=== PATIENT | female | born 1955 | race Caucasian/White ===

== ENCOUNTER → 2016-11-03 | Outpatient (CLI) | payer OTHER ==
[~2016-11-03] MED LIST: AMLODIPINE10 MG; AMLODIPINE10 MG PO; BENAZEPRIL HYDR40 MG PO; COQ10150 MG PO; DYAZIDE CAP (M1 EACH PO; GLYBURIDE 5MG TA5 MG PO; KLOR-CON M2020 MEQ PO; LUTEIN6 M1 PO; METFORMIN 500M500 MG PO; METOPROLOL50 MG PO; NEXIUM40 MG PO; OMEGA-31000 MG PO; PHARMASSURE RE250 MG PO; SYNTHROID 0.0.075 MG PO; VICTOZA6 MG/ML SC
== END ==
LOC: LAB 16:23
DX: L02.221 Furuncle of abdominal wall (principal)

== ENCOUNTER 2017-02-19 08:39 | Day surgery (SDC) | payer OTHER ==
[~2017-02-19] VITALS: Ht 170.2 cm; Wt 117.9 kg
--- NOTE | 2017-02-19 09:55 | Operative Note ---
Upper GI Endoscopy Procedure date: 02/19/17 Date of : 51 Procedure:Upper GI Endoscopy Esophagogastroduodenoscopy with cold biopsies Indications: Mrs. 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 This was identified by her EGD in August 2016. Her insurance would not approve radiofrequency ablation so she is here for follow-up surveillance endoscopy at 6 months. Her dysphagia and globus sensation improved with esophageal dilation and the addition of domperidone. She is on PPI therapy as well. The patient has no symptoms of heartburn, reflux or dysphagia. Performing Provider: Jose Yanes MD Referring Provider: Arnoldo Valverde M.D. Sedation: MAC anesthesia Procedure: Prior to the procedure, a history and physical exam was performed, and patients medications and allergies were reviewed. The risks and benefits of the procedure and the sedation options and risks were discussed with the patient. All questions were answered and informed consent was obtained. The patient was brought to the procedure room. Patient identification and proposed procedure were verified by the physician and the nurse. The patient was placed in a left lateral decubitus position and the scope was passed under direct vision. Throughout the procedure, the patient's blood pressure, pulse, and oxygen saturations were monitored continuously. The endoscope was introduced through the mouth, and advanced to the second part of duodenum. The upper GI endoscopy was accomplished without difficulty. The patient tolerated the procedure well. Findings: The scope was passed directly into the upper esophagus and advanced to the third portion of the duodenum. The post bulbar duodenum and duodenal bulb were normal with normal mucosa and conniventes. The scope was withdrawn through a normal duodenal bulb and pylorus into the stomach. There was some reactive gastritis of the stomach with bile reflux. There was no hiatal hernia. The scope was then withdrawn into the esophagus. There was a very short segment Henry's esophagus with 1 or 2 tongues of Henry's. Narrowband imaging was utilized and the area of probable Henry's with low-grade dysplasia was identified and biopsied 4. There was no evidence of reflux esophagitis or Schatzki's ring. The remainder of the esophageal mucosa was normal. Immediate complications: None EBL (ml): 0 Impression: 1. Short segment Henry's esophagus with nonerosive gastroesophageal reflux disease 2. Bile reflux with mild linear reactive gastritis Recommendations: I will follow-up the biopsies. If she has evidence of low-grade dysplasia, I would still encourage and recommend radiofrequency ablation. I do feel that she will have coverage when she is eligible for Medicare. I will discuss this with the patient and family. at 0972
--- NOTE | 2017-02-19 10:02 | Anesthesia Record ---
Anesthesia Record Part I Total IV fluids: 200 EBL (ml): 0 Urine Output: 0 B/P: 130/71 % SaO2: 94 Pulse: 67 Resps: 16 Temp: 97.9 Patient is: Awake, Stable Stable to PACU at: 0954 (sds) at 1001
--- NOTE | 2017-02-19 10:02 | Anesthesia Record ---
Anesthesia Record Part II Discharge time: 953 Destination: Same day surgery PACU nurse assessment review? Yes Patient is: Awake, Stable Anesthesia complications? No at 1002
[2017-02-19 14:32] VITALS: BP 115/64
== END 2017-02-19 10:53 | disposition home or self-care (01) ==
LOC: SDC 08:39
PROVIDERS: Internal Medicine Gastroenterology
PROC: 0DB58ZX Excision of Esophagus, Via Natural or Artificial Opening Endoscopic, Diagnostic (ICD-10-PCS; principal; 2017-02-19 09:30)
DX: K22.710 Barrett's esophagus with low grade dysplasia (principal); K21.9 Gastro-esophageal reflux disease without esophagitis; K29.60 Other gastritis without bleeding

== ENCOUNTER → 2017-07-30 | Outpatient (CLI) | payer OTHER ==
[~2017-07-30] MED LIST changes: +DOXAZOSIN MESYLA1 MG NG
--- NOTE | 2017-08-01 13:05 | RADIOLOGY REPORT PS360 ---
DIG MAMM-SCREEN DOM W/CAD CAD Screening ORDERING PHYSICIAN : Arnoldo Valverde MD PATIENT AGE: 62 years GENDER: Female COMPARISON: Previous mammograms: June 2015 October 06 INDICATION: Routine screening no hormones. No new complaints. HISTORY tachycardia biopsy right breast Noncontributory family history TECHNIQUE: Standard CC and MLO images were obtained. R2 CAD reviewed. FINDINGS: RIGHT BREAST: New small nodular density at the medial right breast measuring 6 mm times nearly 10 mm times on cc view. There is labeled a has become apparent since prior study. I recommend CC and MLO and 90 degrees spot view along with along with right breast ultrasound. Scattered small calcifications superior right breast appear benign and stable Otherwise Mild asymmetric density at the lateral right breast is stable compared to 2015 as well as prior studies.. No metallic marker at right breast from previous stereotactic biopsy evident. LEFT BREAST: No interval change. No new areas of concern. Follow-up in one year on left Minor area Density laterally on cc view less evident today .. IMPRESSION: -------- 1. Right breast. New Nodular density medial left breast. Measuring up to 10 mm maximally. Warrants ultrasound and spot views to further evaluate. 2. Left breast. Stable. Follow up one year recommended on left BI-RADS CATEGORY: 0_Incomplete: Need additional imaging RECOMMENDED FOLLOWUP: Ultrasound and Spot Views Right Breast (A letter has been sent to the patient regarding results of the study.)
== END ==
LOC: RAD 16:53
DX: Z12.31 Encounter for screening mammogram for malignant neoplasm of breast (principal)
CPT/HCPCS: G0202

== ENCOUNTER → 2017-08-10 | Outpatient (CLI) | payer OTHER ==
--- NOTE | 2017-08-14 14:33 | RADIOLOGY REPORT PS360 ---
DIG MAMM-DX UNI A/VW-RT W/CAD, US BREAST-RT COMPLETE W/AXILLA Ordering Physician: Arnoldo Valverde MD Patient Age: 62 years: Female HISTORY: ABNORMAL MAMM TECHNIQUE: Spot MLO cc 90 degrees views right breast; with subsequent right breast ultrasound COMPARISON :July 2017 screening bilateral mammogram. June 2015, September 2008 ======== DIAGNOSTIC RIGHT MAMMOGRAM WITH SPOT VIEWS Spot views again reveal a small ovoid area measuring up to 9 mm at the inferior right breast 5-6 o'clock position. Well-defined margins. No other features. ======= ULTRASOUND RIGHT BREAST including axillary survey Ultrasound entire breast was performed including survey of the axillary region. At 6:00 there is a well delineated 7.7 mm mm x 4.5 mm mm cystic well-defined focal hypoechoic with back wall enhancement. This is compatible with a cyst. Patient may resume annual scheduled... He Axillary survey reveals no significant nodes. IMPRESSION: ...... 1. Benign cystic area at 5-6 o'clock position right breast. Small nodular density at inferior right breast seen on mammography. Corresponding Cystic area at 6:00 ultrasound measuring just less than 8 mm maximally.. Benign feature \ 2. patient may resume annual follow-up schedule. Bilateral mammogram June-July 2018
== END ==
LOC: RAD 14:29
DX: R92.8 Other abnormal and inconclusive findings on diagnostic imaging of breast (principal)
CPT/HCPCS: G0206-RT

== ENCOUNTER → 2017-08-13 | Outpatient (CLI) | payer OTHER | LOC: RAD 12:57 | DX: R92.8 Other abnormal and inconclusive findings on diagnostic imaging of breast (principal) ==

== ENCOUNTER → 2017-08-29 | Outpatient (CLI) | payer OTHER ==
--- NOTE | 2017-08-30 16:46 | RADIOLOGY REPORT PS360 ---
PROCEDURE: 2-D M-mode and color Doppler study INDICATIONS FOR THE TEST: Chest pain + COPD Heart Murmur Tobacco Smoking Palpitations Fatigue Syncope Edema Hypertension+Diabetes Mellitus+ Rheumatic Fever SOB MANLEY+Obesity+Hyperlipidemia+ Family History HD Additional History PATIENT INFORMATION HEIGHT: 67 WEIGHT:270 GENDER: Female B/P:156/66 2-D/M-MODE INTERPRETATION: 2-D MEASUREMENTS OBSERVED VALUES IN CMS Right Ventricular Dimension (RVDd) 2.0 Interventricular Septum (Thickness)(IVsd) 1.5 Left Ventricular Internal Dimensions(LVIDd) 5.6 Left Ventricular Posterior Wall (Thickness)(LVPWd) 0.8 Aortic Root 3.1 Aortic Cusp Separation 1.9 Left Atrial Dimensions (LAD) 4.5 2D 1. Left atrium is mildly enlarged, left ventricle is normal size, mild concentric left ventricular hypertrophy, visually estimated ejection fraction 55% with no obvious regional wall motion abnormality. 2. The right atrium and right ventricle are normal size and contractility. 3. The aortic valve is minimally thickened and fibrosed. 4. The mitral and tricuspid valve leaflets are grossly normal. 5. The pulmonic valve is poorly visualized. 6. No significant pericardial effusion noted. DOPPLER INTERROGATION: Doppler interrogation of the aortic, mitral and tricuspid valvular presence of mild mitral and tricuspid regurgitation, tricuspid regurgitant jet velocity is insufficient for calculation of the right ventricular systolic pressure, grade 1 diastolic dysfunction seen with tissue Doppler evidence of raised left atrial pressure. CONCLUSION: 1. Mildly enlarged left atrium, normal left ventricular size, mild concentric left ventricular hypertrophy, visually estimated ejection fraction 55% with no obvious regional wall motion abnormality, grade 1 diastolic dysfunction seen with tissue Doppler evidence of raised left atrial pressure. 2. Mild mitral and tricuspid regurgitation. 3. No significant pericardial effusion noted.
== END ==
LOC: RT 15:13
DX: I20.9 Angina pectoris, unspecified (principal); E11.9 Type 2 diabetes mellitus without complications; R01.1 Cardiac murmur, unspecified; I10 Essential (primary) hypertension; E78.5 Hyperlipidemia, unspecified

== ENCOUNTER 2017-08-30 07:29 | Day surgery (SDC) | payer OTHER ==
[2017-08-30 08:14] LABS: HEMOGLOBIN 13.4 g/dL (12.2-16.2); LYMPH # 1.7 K/mm3 (0.7-4.5); LYMPH % 16.8 % (10-50.0)
[2017-08-30 08:29] LABS: BUN 15 mg/dL (7-18); GFR (ESTIMATED) 72 ML/MIN (59-)
--- NOTE | 2017-08-30 10:27 | RADIOLOGY REPORT PS360 ---
CARDIAC CATHETERIZATION DATE OF CATHETERIZATION:08/30/2017 8:35 AM PROCEDURES: 1. Left heart catheterization 2. Selective coronary angiogram 3. Left ventriculogram INDICATION FOR TEST: 1. Abnormal EKG 2. Risk factors for coronary artery disease 3. Class III angina Informed consent was obtained prior to the procedure. COMPLICATIONS: None ESTIMATED BLOOD LOSS: Less than 10 ml. TECHNIQUE: One percent lidocaine used to anesthetize the right anterior aspect of the wrist. The right radial artery was accessed via the Seldinger technique. A 6 Swedish sheath was placed in the right radial artery. 2.5 mg of verapamil, 800 mcg of nitroglycerin and 5000 U Heparin were given through the arterial sheath. The trap catheter was also used to perform left heart catheterization and left ventriculography. At the end of the procedure the patient was transferred to the post-op holding area in stable condition for arterial sheath removal. ANGIOGRAPHIC RESULTS: 1. The left main artery normal 2. The left anterior descending artery normal 3. The circumflex artery normal 4. The right coronary artery dominant normal 5. The PENA ventriculogram reveals 65% 6. The left ventricular end-diastolic pressure mildly elevated 15 mmHg IMPRESSION: 1. Normal coronary arteries. 2. Normal ejection fraction 3. Mildly elevated LVEDP PLAN: 1. Medical management 2. Evaluation noncardiac chest pain
[2017-08-30 12:40] VITALS: BP 157/80
== END 2017-08-30 12:50 | disposition home or self-care (01) ==
LOC: CATHLAB 07:29
PROVIDERS: Internal Medicine
PROC: B2111ZZ Fluoroscopy of Multiple Coronary Arteries using Low Osmolar Contrast (ICD-10-PCS; 2017-08-30)
PROC: B2151ZZ Fluoroscopy of Left Heart using Low Osmolar Contrast (ICD-10-PCS; 2017-08-30)
PROC: 4A023N7 Measurement of Cardiac Sampling and Pressure, Left Heart, Percutaneous Approach (ICD-10-PCS; principal; 2017-08-30 09:45)
DX: I20.8 Other forms of angina pectoris (principal); R07.9 Chest pain, unspecified; R94.31 Abnormal electrocardiogram [ECG] [EKG]; I10 Essential (primary) hypertension; E11.9 Type 2 diabetes mellitus without complications; I25.2 Old myocardial infarction; R01.1 Cardiac murmur, unspecified
CPT/HCPCS: C1725; C1769; J1644; Q9967